=== PATIENT | female | born 1985 | race Caucasian/White ===

== ENCOUNTER 2016-11-25 17:05 | Emergency (ER) | payer MEDICAID ==
[~2016-11-25] VITALS: Ht 154.9 cm; Wt 54.5 kg
[2016-11-25 17:13] VITALS: Ht 154.9 cm; Wt 54.5 kg
[2016-11-25] MEDS ORDERED: SOD CHLORIDE 0.9% 500 ML IV STA (17:30)
[2016-11-25] MEDS ORDERED: morphine 4 MG/ML VIAL IV STA (17:30)
[2016-11-25] MEDS ORDERED: ONDANSETRON 4 MG INJ IV STA (17:30)
[2016-11-25 18:23] LABS: ADD SCAN DIFF NO
[2016-11-25 18:25] LABS: BASOPHILS % 0.3 % (0.0-2.0); EOSINOPHILS # 0.1 10^3/ul (0.0-0.5); EOSINOPHILS % 0.9 % (0.0-7.0); HEMATOCRIT 36.3 % (37.0-47.0); HEMOGLOBIN 11.3 g/dl (12.0-16.0); LYMPHOCYTES % 20.3 % (15.0-51.0); MEAN CORPUSCULAR HEMOGLOBIN 23.5 pg (29.0-33.0); MEAN CORPUSCULAR HGB CONC 31.1 g/dl (32.0-37.0); MEAN CORPUSCULAR VOLUME 75.6 fl (82.0-101.0); MEAN PLATELET VOLUME 9.8 fl (7.4-10.4); MONOCYTE # 0.5 10^3/ul (0.3-0.9); MONOCYTES % 5.1 % (0.0-11.0); NEUTROPHIL # 7.3 10^3/ul (1.6-7.5); NEUTROPHILS % 73.1 % (39.0-77.0); PLATELET COUNT 321 10^3/UL (140-415); RED CELL DISTRIBUTION WIDTH 16.7 % (11.5-14.5)
[2016-11-25 18:37] LABS: ADD UMIC YES; URINE BILIRUBIN (Dip) NEGATIVE (NEGATIVE); URINE BLOOD (Dip) NEGATIVE (NEGATIVE); URINE COLOR LT. YELLOW (YELLOW); URINE GLUCOSE (Dip) NEGATIVE (NEGATIVE); URINE KETONES (Dip) NEGATIVE (NEGATIVE); URINE LEUKOCYTE ESTERASE (Dip) TRACE (NEGATIVE); URINE NITRITE (Dip) NEGATIVE (NEGATIVE); URINE TOTAL PROTEIN (Dip) TRACE (NEGATIVE); URINE UROBILINOGEN (Dip) 0.2 E.U./dL (0.1-1.0)
[2016-11-25 18:49] LABS: ALBUMIN 4.9 g/dl (3.3-4.9); ALBUMIN/GLOBULIN RATIO 1.25; BILIRUBIN,INDIRECT 0.4 mg/dl (0-1.1); BILIRUBIN,TOTAL 0.4 mg/dl (0.2-1.3); CALCIUM 9.2 mg/dl (8.4-10.2); CREATININE 0.48 mg/dl (0.44-1.00); POTASSIUM 3.9 mmol/L (3.5-5.1); TOTAL PROTEIN 8.8 g/dl (6.1-8.1)
[2016-11-25 18:54] LABS: BACTERIA,URINE FEW; SQUAMOUS EPITHELIAL CELL,UR MODERATE; URINE RBCS 2-5 (1+) /HPF (0)
[2016-11-25] MEDS ORDERED: SOD CHLORIDE 0.9% 100 ML ONE (18:56)
[2016-11-25] MEDS ORDERED: IOHEXOL 300MG/ML 150 ML BTL ONE (18:56)
--- NOTE | 2016-11-25 20:21 | RADRPT ---
PROCEDURE: CT abdomen and pelvis with contrast. CLINICAL INDICATION: Abdominal pain. TECHNIQUE: CT scan of the abdomen and pelvis with contrast was performed. Coronal and sagittal im ages were also reformatted. 90 cc Omnipaque-300 intravenous contrast was administered without compl ication. Total exam CTDIvol = 5.57 mGy and DLP = 316.97 mGy-cm. COMPARISON: Ultrasound 04/01/2014 FINDINGS: Visualized lower thorax: The lung bases are clear. There is no evidence for pleural effusion. Liver, gallbladder, pancreas and spleen: Normal hepatic contour, attenuation in size. There is no evidence for liver mass or ductal dilatation. Interval cholecystectomy since the prior ultrasound e xam, clips seen in the gallbladder fossa. No common bile duct dilatation is evident. The pancreas is normal. The spleen is normal, not enlarged. Adrenal glands and genitourinary system: The adrenal glands are normal bilaterally. The kidneys ar e normal in size, contour and attenuation with no evidence for masses, calculi or hydronephrosis. S ymmetric enhancement of the renal parenchyma is present without evidence of pyelonephritis. The ure ters are unremarkable. The urinary bladder shows no abnormality. The uterus is unremarkable. The right ovary/adnexa shows what is likely a hemorrhagic cyst or follicle measuring 1.6 x 1 cm with a s mall amount of free fluid in the right adnexa and posterior cul-de-sac (series 3 images 138-144). Gastrointestinal system: The stomach, small bowel and large intestine are normal in caliber. There is no evidence of obstruction, ileus or inflammation. There is no evidence of appendicitis. A norm al amount of fecal debris is present within the colon and there is no wall thickening to suggest col itis. Peritoneum, retroperitoneum, vessels and lymph nodes: The abdominal aorta is normal in caliber. No pneumoperitoneum is seen. Inferior vena cava is normal in caliber. There is no evidence for adeno eloy. There is no upper abdominal ascites, again there is free fluid within the posterior cul-de-s ac. Osseous structures and musculoskeletal system: There is no evidence for acute osseous abnormality o r muscular pathology. No subcutaneous abnormalities are present. RPTAT:HJJR IMPRESSION: 1. Right ovarian/adnexal hemorrhagic follicle or cyst estimated at 1.6 x 1 cm with a small amount of free fluid in the right adnexa and right posterior cul-de-sac. 2. No evidence of appendicitis. 3. Interval cholecystectomy compared to the ultrasound of 04/01/2014. Misael Spence, Physician Date Time Electronically viewed and signed by Misael Spence, Physician on 11/25/2016 20:21 JR/
[2016-11-25] MEDS ORDERED: HYDR-906 PO (20:38)
[2016-11-25] MEDS ORDERED: IBUP-1542 PO (20:38)
[2016-11-25] MEDS ORDERED: ONDA4TAB14 PO (20:39)
[2016-11-25 20:50] VITALS: BP 120/76; PULSE 99; RESP 20; TEMP 99.2
--- NOTE | 2016-11-25 21:06 | ERD ---
ER Documentation Chief Complaint Date/Time DATE: 11/25/16 TIME: 20:58 Chief Complaint SEVERE ABD PAIN X 4 DAYS, VOMITED YESTERDAY, NAUSEA, DIARRHEA HPI Patient is a 31-year-old female with a past medical history of s/p cholecystectomy who presents to the emergency department for right upper abdominal pain 4 days. States the pain occasionally radiates to the epigastric region. Patient denies any fevers or chills. Patient does report nausea and vomiting. She states she had 2 episodes of nonbloody, yellow vomit earlier today. She reports diarrhea for the last 3 days. Patient denies any vaginal bleeding. Patient denies any dysuria, frequency, urgency or hematuria. Patient denies any recent travel. No sick contacts. Patient states her last menstrual period was 2 weeks ago. ROS All systems reviewed and are negative except as per history of present illness. Medications Home Meds Active Scripts Ondansetron (Ondansetron Odt) 4 Mg Tab.rapdis, 4 MG PO Q6H Y for NAUSEA AND/OR VOMITING, #10 TAB Prov:TAYO ELI-Tavon 11/25/16 Hydrocodone/Acetaminophen (Joffre 5-325 Tablet) 1 Each Tablet, 1 TAB PO Q6H Y for PAIN, #7 TAB Prov:TAYO ELI-C 11/25/16 Ibuprofen* (Motrin*) 600 Mg Tab, 600 MG PO Q6, #30 TAB Prov:TAYO ELI-C 11/25/16 Allergies Allergies: Coded Allergies: No Known Allergies (Verified Allergy, Mild, 11/25/16) PMhx/Soc History of Surgery: Yes (DIAN) Anesthesia Reaction: No Hx Neurological Disorder: No Hx Respiratory Disorders: No Hx Cardiac Disorders: No Hx Psychiatric Problems: No Hx Miscellaneous Medical Probl: No Hx Alcohol Use: No Hx Substance Use: No Hx Tobacco Use: No Physical Exam Vitals Vital Signs Date Time Temp Pulse Resp B/P Pulse Ox O2 Delivery O2 Flow Rate FiO2 11/25/16 20:50 99.2 99 20 120/76 99 Room Air 11/25/16 17:13 99.2 121 20 141/98 99 Physical Exam GENERAL: Well-developed, well-nourished female. Appears in no acute distress. HEAD: Normocephalic, atraumatic. EYES: Pupils are equally reactive bilaterally. EOMs grossly intact. No conjunctival erythema. ENT: Moist mucous membranes. No uvula deviation. No kissing tonsils. NECK: Supple. No meningismus. Normal range of motion of the neck. LUNG: Clear to auscultation bilaterally. No rhonchi, wheezing, rales or coarse breath sounds. HEART: Regular rate and rhythm. No murmurs, rubs or gallops. ABDOMEN: Previous surgical incisional port sites noted. Tender to palpation in the right upper quadrant.. Positive bowel sounds in all four quadrants. No rebound tenderness, no guarding. (-) McBurney's point tenderness. No CVA tenderness. BACK: No midline tenderness. EXTREMITIES: Equal pulses bilaterally. No peripheral clubbing, cyanosis or edema. No unilateral leg swelling. NEUROLOGIC: Alert and oriented. Moving all four extremities without any difficulty. Normal speech. Steady gait. SKIN: Normal color. Warm and dry. No rashes or lesions. Result Diagram: 11/25/16181911/25/161819 Results 24 hrs Laboratory Tests Test 11/25/16 18:20 White Blood Count 10.010^3/ul Red Blood Count 4.8010^6/ul Hemoglobin 11.3g/dl Hematocrit 36.3% Mean Corpuscular Volume 75.6fl Mean Corpuscular Hemoglobin 23.5pg Mean Corpuscular Hemoglobin Concent 31.1g/dl Red Cell Distribution Width 16.7% Platelet Count 12913^3/UL Mean Platelet Volume 9.8fl Neutrophils % 73.1% Lymphocytes % 20.3% Monocytes % 5.1% Eosinophils % 0.9% Basophils % 0.3% Nucleated Red Blood Cells % 0.0/100WBC Neutrophils # 7.310^3/ul Lymphocytes # 2.010^3/ul Monocytes # 0.510^3/ul Eosinophils # 0.110^3/ul Basophils # 0.010^3/ul Nucleated Red Blood Cells # 0.010^3/ul Urine Color LT. YELLOW Urine Clarity CLOUDY Urine pH 8.5 Urine Specific Pax 1.015 Urine Ketones NEGATIVE Urine Nitrite NEGATIVE Urine Bilirubin NEGATIVE Urine Urobilinogen 0.2 E.U./dL Urine Leukocyte Esterase TRACE Urine Microscopic RBC 2-5 (1+)/HPF Urine Microscopic WBC 2-5/HPF Urine Squamous Epithelial Cells MODERATE Urine Amorphous Urates MANY Urine Bacteria FEW Urine Hemoglobin NEGATIVE Urine Glucose NEGATIVE% Urine Total Protein TRACE Sodium Level 143mmol/L Potassium Level 3.9mmol/L Chloride Level 109mmol/L Carbon Dioxide Level 21mmol/L Anion Gap 17 Blood Urea Nitrogen 11mg/dl Creatinine 0.48mg/dl Glucose Level 90mg/dl Calcium Level 9.2mg/dl Total Bilirubin 0.4mg/dl Direct Bilirubin 0.00mg/dl Indirect Bilirubin 0.4mg/dl Aspartate Amino Transf (AST/SGOT) 28IU/L Alanine Aminotransferase (ALT/SGPT) 30IU/L Alkaline Phosphatase 93IU/L Total Protein 8.8g/dl Albumin 4.9g/dl Globulin 3.90g/dl Albumin/Globulin Ratio 1.25 Lipase 86U/L Current Medications Medications (Trade) Dose Ordered Sig/Dmitry Route PRN Reason Start Time Stop Time Status Last Admin Dose Admin Sodium Chloride (NS) 500 ml @ 500 mls/hr Q1H STAT IV 11/25/16 17:30 11/25/16 18:29 DC 11/25/16 18:38 Morphine Sulfate (morphine) 4 mg ONCE STAT IV 11/25/16 17:30 11/25/16 17:32 DC 11/25/16 18:38 Ondansetron HCl (Zofran Inj) 4 mg ONCE STAT IV 11/25/16 17:30 11/25/16 17:32 DC 11/25/16 18:38 IV Flush 10 ml 10 ml STK-MED ONCE .ROUTE 11/25/16 18:56 11/25/16 18:57 DC Sodium Chloride (NS) 100 ml @ ud STK-MED ONCE .ROUTE 11/25/16 18:56 11/25/16 18:57 DC Iohexol (Omnipaque 300mg/ ml) 150 ml STK-MED ONCE .ROUTE 11/25/16 18:56 11/25/16 18:57 DC Procedures/MDM ED COURSE: The patient was stable throughout ED course. I kept the patient and/or family informed of laboratory and diagnostic imaging results throughout the ED course. DIAGNOSTIC IMAGING: Read by radiologist. DIAGNOSTIC IMAGING REPORT Patient: BELEM ADRIAN : 1985 Age: 31 Sex: F MR #: [id number] DOS: 11/25/16 1730 Ordering MD: TAYO ELI PA-C Location: [facility] Room/Bed: PROCEDURE: CT abdomen and pelvis with contrast. CLINICAL INDICATION: Abdominal pain. TECHNIQUE: CT scan of the abdomen and pelvis with contrast was performed. Coronal and sagittal images were also reformatted. 90 cc Omnipaque-300 intravenous contrast was administered without complication. Total exam CTDIvol = 5.57 mGy and DLP = 316.97 mGy-cm. COMPARISON: Ultrasound 04/01/2014 FINDINGS: Visualized lower thorax: The lung bases are clear. There is no evidence for pleural effusion. Liver, gallbladder, pancreas and spleen: Normal hepatic contour, attenuation in size. There is no evidence for liver mass or ductal dilatation. Interval cholecystectomy since the prior ultrasound exam, clips seen in the gallbladder fossa. No common bile duct dilatation is evident. The pancreas is normal. The spleen is normal, not enlarged. Adrenal glands and genitourinary system: The adrenal glands are normal bilaterally. The kidneys are normal in size, contour and attenuation with no evidence for masses, calculi or hydronephrosis. Symmetric enhancement of the renal parenchyma is present without evidence of pyelonephritis. The ureters are unremarkable. The urinary bladder shows no abnormality. The uterus is unremarkable. The right ovary/adnexa shows what is likely a hemorrhagic cyst or follicle measuring 1.6 x 1 cm with a small amount of free fluid in the right adnexa and posterior cul-de-sac (series 3 images 138-144). Gastrointestinal system: The stomach, small bowel and large intestine are normal in caliber. There is no evidence of obstruction, ileus or inflammation. There is no evidence of appendicitis. A normal amount of fecal debris is present within the colon and there is no wall thickening to suggest colitis. Peritoneum, retroperitoneum, vessels and lymph nodes: The abdominal aorta is normal in caliber. No pneumoperitoneum is seen. Inferior vena cava is normal in caliber. There is no evidence for adenopathy. There is no upper abdominal ascites, again there is free fluid within the posterior cul-de-sac. Osseous structures and musculoskeletal system: There is no evidence for acute osseous abnormality or muscular pathology. No subcutaneous abnormalities are present. RPTAT:HJJR IMPRESSION: 1. Right ovarian/adnexal hemorrhagic follicle or cyst estimated at 1.6 x 1 cm with a small amount of free fluid in the right adnexa and right posterior cul-de -sac. 2. No evidence of appendicitis. 3. Interval cholecystectomy compared to the ultrasound of 04/01/2014. Physician Savanah Date Time Electronically viewed and signed by Misael Spence Physician on 11/25/2016 20:21 JR/ CC: TAYO ELI PA-C PROCEDURES: None. MEDICATIONS GIVEN: IV fluids, Zofran, morphine Patient tolerated medication well with no adverse reactions. Patient reported improvement in pain. MEDICAL DECISION MAKING: This is a 31-year-old female s/p cholecystectomy presents to the ED with right upper quadrant pain, nausea, vomiting and diarrhea. Vital signs were reviewed. Patient is afebrile. Abdominal exam revealed tenderness to palpation in the right upper quadrant. CBC showed no evidence of systemic infection. Hemoglobin level was noted to be 11.3, slight anemia noted. CMP showed no evidence of electrolyte abnormalities, severe acidosis, alkalosis, renal failure, or liver disease. Lipase showed no evidence of acute pancreatitis. UA showed trace leukocyte esterase, 2-5 WBCs however modern epithelial cells are noted. Given that patient denied any dysuria, frequency or hematuria, will not treat the patient with course of antibiotics at this time. test is negative. CT imaging of the abdomen and pelvis with IV contrast showed Right ovarian/ adnexal hemorrhagic follicle or cyst estimated at 1.6 x 1 cm with a small amount of free fluid in the right adnexa and right posterior cul-de-sac. No evidence of appendicitis. Interval cholecystectomy compared to the ultrasound of 04/01/2014. At this time, patient's presentation is most consistent with right upper quadrant pain and right ovarian cyst. I have a much lower clinical concern for acute coronary syndrome, AAA, mesenteric ischemia, lower lobe pneumonia, DKA, bowel perforation, bowel obstruction, choledocholithiasis, ascending cholangitis, hepatic abscess, pancreatitis, PUD, splenic rupture, diverticulitis, UTI, pyelonephritis, nephrolithiasis, appendicitis, . PRESCRIPTIONS: Joffre, ibuprofen, Zofran DISCHARGE: At this time, patient is stable for discharge and outpatient management. Given a copy of all imaging and blood work obtained today. Patient advised to follow- up with a GI specialist for symptoms. Referral information provided.. I have instructed the patient to follow-up with his/her primary care physician in 1-2 days. I have instructed the patient to promptly return to the ER at any time for any new or worsening symptoms including increased pain, nausea, vomiting, diarrhea, fever, weakness or LOC. The patient and/or family expressed understanding of and agreement with this plan. All questions were answered. Home care instructions were provided. Departure Diagnosis: Primary Impression: Abdominal pain Abdominal location: right upper quadrant Qualified Code: R10.11 - Right upper quadrant abdominal pain Additional Impression: Right ovarian cyst Condition: Stable Patient Instructions: Abdominal Pain, Unknown Cause, (Female) Referrals: MIAN DOS SANTOS MD, RAHUL K. CHITAYAT, RON EPHRAIM,VISHAL ROSASVING [employer] [place] [id number] [facility] [address] [place] [address]ABUSLEME SURJIT [address] [place] [place] [id number] [facility] [address] [place] [address] [address] [facility] [address] [facility] [facility] [address] [address] [address] [place] [address] [facility] [address] [place], [place] [id number] [address] [facility] [id number] - [address]ICH PANDYA [address], [facility] [address] [address] [facility] [facility] [address] [facility]. [address], [facility] [id number] [address] [address] [place] [address] Additional Instructions: Call your primary care doctor TOMORROW for an appointment during the next 1-2 days.See the doctor sooner or return here if your condition worsens before your appointment time. Follow up with the GI specialist for further management of your symptoms. See referral list. TAYO ELI PA-C Nov 25, 2016 21:06
== END 2016-11-25 20:51 | disposition home or self-care (01) ==
LOC: FTE 17:05
DX: R10.11 Right upper quadrant pain (principal); N83.291 Other ovarian cyst, right side; R10.2 Pelvic and perineal pain; R11.2 Nausea with vomiting, unspecified
CPT/HCPCS: 74177; 80053; 81001; 83690; 85025; J2270; J2405; J7040; Q9967; Z7610; 96374; 96375